=== PATIENT | male | born 1975 | race Caucasian/White ===

== ENCOUNTER 2016-11-27 22:40 | Emergency (ER) | payer SELFPAY ==
--- NOTE | 2016-11-27 23:37 | Cat Scan Report ---
FINAL REPORT EXAM: CT HEAD/BRAIN WO CON HISTORY: BLURRED VISION/DIZZY COMPARISON: None available. TECHNIQUE: Axial images obtained skull base through vertex. FINDINGS: No acute intracranial hemorrhage, midline shift or pathologic extra axial fluid collection. Ventricles and cisterns are normal in size and configuration for the patient's age. Matta-white differentiation preserved. Calvarium grossly intact. Mild benign calcification of the basal ganglia. Mild mucosal thickening along ethmoid air cell septations. Mastoid air cells are clear. Orbits are grossly unremarkable. IMPRESSION: No grossly acute intracranial abnormality.
[2016-11-28 00:09] LABS: Basophils % (Auto) 0.6 % (0.0-1.8); Eosinophils % (Auto) 3.2 % (0.0-4.3); Hematocrit 43.2 % (35.5-45.6); Hemoglobin 14.2 gm/dl (11.8-15.2); Mean Corpuscular HGB Conc 33 % (32-34); Mean Corpuscular Volume 79 fl (84-94); Platelet Count 337 K/mm3 (140-440); Red Blood Count 5.48 M/mm3 (3.65-5.03); Red Cell Distribution Width 15.2 % (13.2-15.2)
[2016-11-28 00:27] LABS: Anion Gap 20 mmol/L; BUN/Creatinine Ratio 31.42; Blood Urea Nitrogen 22 mg/dL (9-20); Calcium 9.6 mg/dL (8.4-10.2); Carbon Dioxide 24 mmol/L (22-30); Chloride 100.6 mmol/L (98-107); Glucose 96 mg/dL (75-100); Mean Corpuscular Hemoglobin 26 pg (28-32); Potassium 3.4 mmol/L (3.6-5.0); Sodium 141 mmol/L (137-145)
--- NOTE | 2016-11-28 11:18 | Emergency Department Report ---
ED General Adult HPI - General Chief complaint: Chest Pain Stated complaint: CP/L ARM PAIN/FACIAL NUMBNESS Time Seen by Provider: 11/28/16 10:52 Source: patient, RN notes reviewed, old records reviewed Mode of arrival: Ambulatory Limitations: No Limitations - History of Present Illness Initial comments: This is a 41-year-old male. He is previously unknown to me. He does not have a local primary care doctor. He denies chronic medical conditions. The patient presents to the ER with multiple complaints. He complains of left- sided chest pain that radiates to the left upper extremity, left sided facial numbness, and occipital headache. The chest discomfort has been present for months. There is no leg pain, there is no leg swelling, no recent trips greater than 4 hours, no recent hospital admissions. To me, the patient denies dizziness, ataxia, blurry vision. He reports that the headache is worse at night, and improves during the day. He reports no weakness. There is no midline neck pain. There is no bladder or bowel retention or incontinence. There is no saddle anesthesia. Patient reports that he has difficulty sleeping at night, and reports poor sleep hygiene. He also reports taking 5 hour energy as a supplement. -: Gradual Location: head, neck, left, upper extremity Radiation: extremity Quality: stabbing Consistency: intermittent Improves with: none Worsens with: none Associated Symptoms: confusion - Related Data Previous Rx's Medication Instructions Recorded Last Taken Type Aspirin [Adult Low Dose Aspirin EC] 81 mg PO QDAY #30 tablet. 11/28/16 Unknown Rx amLODIPine [Norvasc] 10 mg PO DAILY #30 tablet 11/28/16 Unknown Rx Allergies Allergy/AdvReac Type Severity Reaction Status Date / Time No Known Allergies Allergy Verified 07/05/15 01:12 ED Review of Systems ROS: Stated complaint: CP/L ARM PAIN/FACIAL NUMBNESS Other details as noted in HPI Constitutional: denies: fever Eyes: vision change ENT: denies: epistaxis Respiratory: denies: cough Cardiovascular: chest pain Gastrointestinal: denies: vomiting Genitourinary: denies: dysuria Musculoskeletal: back pain Neurological: headache, numbness, paresthesias ED Past Medical Hx - Past Medical History Hx Hypertension: Yes Hx Kidney Stones: Yes - Surgical History Additional Surgical History: Lithotripsy - Social History Smoking Status: Never Smoker Substance Use Type: None - Medications Home Medications: Home Medications Medication Instructions Recorded Confirmed Last Taken Type Aspirin [Adult Low Dose Aspirin EC] 81 mg PO QDAY #30 tablet. 11/28/16 Unknown Rx amLODIPine [Norvasc] 10 mg PO DAILY #30 tablet 11/28/16 Unknown Rx ED Physical Exam - General Limitations: No Limitations General appearance: alert, anxious - Head Head exam: Present: atraumatic, normocephalic - Eye Eye exam: Present: normal appearance, PERRL, EOMI, other (visual acuity intact to finger counting, color perception, reading at a close distance). Absent: nystagmus - ENT ENT exam: Present: normal exam, normal orophraynx, mucous membranes moist, normal external ear exam - Neck Neck exam: Present: normal inspection, full ROM. Absent: tenderness, meningismus - Respiratory Respiratory exam: Present: normal lung sounds bilaterally. Absent: respiratory distress, wheezes, rales, rhonchi, stridor, decreased breath sounds - Cardiovascular Cardiovascular Exam: Present: regular rate, normal rhythm, normal heart sounds. Absent: bradycardia, tachycardia, irregular rhythm, systolic murmur, diastolic murmur, rubs, gallop - GI/Abdominal GI/Abdominal exam: Present: soft, normal bowel sounds. Absent: distended, tenderness, guarding, rebound, rigid, pulsatile mass - Rectal Rectal exam: Present: deferred - Extremities Exam Extremities exam: Present: normal inspection, full ROM, normal capillary refill , other (2+ pulses noted in 4 extremities. There is no palpable cord. The compartments are soft.). Absent: tenderness, pedal edema, joint swelling, calf tenderness - Back Exam Back exam: Present: normal inspection, full ROM. Absent: tenderness, CVA tenderness (R), CVA tenderness (L), muscle spasm, paraspinal tenderness, vertebral tenderness - Neurological Exam Neurological exam: Present: alert, oriented X3, normal gait (there is no pass pointing. Normal [id number]. Negative pronator drift. Normal gait. Normal tandem gait.), other (Extraocular movements intact. Tongue midline. No facial droop. Facial sensation intact to light touch in the V1, V2, V3 distribution bilaterally. 5 and 5 strength in 4 extremities.. Sensation is intact to light touch in 4 extremities.). Absent: motor sensory deficit - Psychiatric Psychiatric exam: Present: normal affect, normal mood - Skin Skin exam: Present: warm, dry, intact, normal color. Absent: rash ED Course Vital Signs 11/27/16 11/28/16 11/28/16 23:01 11:15 11:21 Temperature 98 F Pulse Rate 101 H 64 Respiratory 20 Rate Blood Pressure 163/113 161/94 Blood Pressure [Left] O2 Sat by Pulse 100 99 100 Oximetry 11/28/16 11/28/16 11/28/16 11:31 11:34 11:38 Temperature 98.1 F 98.3 F Pulse Rate 85 Respiratory 16 18 Rate Blood Pressure 151/103 Blood Pressure 151/103 [Left] O2 Sat by Pulse 100 100 100 Oximetry 11/28/16 11/28/16 11/28/16 11:41 11:50 12:41 Temperature Pulse Rate 83 91 H Respiratory 19 17 Rate Blood Pressure 151/103 151/103 151/103 Blood Pressure [Left] O2 Sat by Pulse 100 100 99 Oximetry 11/28/16 11/28/16 11/28/16 12:51 13:00 13:11 Temperature Pulse Rate 84 83 79 Respiratory 24 24 18 Rate Blood Pressure 151/103 143/102 143/102 Blood Pressure [Left] O2 Sat by Pulse 100 100 100 Oximetry 11/28/16 11/28/16 11/28/16 13:21 13:31 13:41 Temperature Pulse Rate 98 H 79 80 Respiratory 18 18 17 Rate Blood Pressure 143/102 143/102 143/102 Blood Pressure [Left] O2 Sat by Pulse 99 100 100 Oximetry 11/28/16 11/28/16 11/28/16 13:51 14:00 14:11 Temperature Pulse Rate 85 80 83 Respiratory 19 21 15 Rate Blood Pressure 143/102 135/92 135/92 Blood Pressure [Left] O2 Sat by Pulse 100 100 100 Oximetry 11/28/16 11/28/16 11/28/16 14:20 14:31 14:41 Temperature Pulse Rate 87 92 H 89 Respiratory 19 19 22 Rate Blood Pressure 135/92 135/92 135/92 Blood Pressure [Left] O2 Sat by Pulse 99 100 100 Oximetry 11/28/16 11/28/16 11/28/16 14:51 15:00 15:11 Temperature Pulse Rate 89 88 100 H Respiratory 13 20 21 Rate Blood Pressure 135/92 143/100 135/92 Blood Pressure [Left] O2 Sat by Pulse 99 99 100 Oximetry 11/28/16 11/28/16 15:21 15:31 Temperature Pulse Rate 86 83 Respiratory 18 18 Rate Blood Pressure 135/92 135/92 Blood Pressure [Left] O2 Sat by Pulse 100 100 Oximetry - Reevaluation(s) Reevaluation #1: 11/28/16 11:56 change in plans. Patient now complaining of nonspecific binocular blurry vision. Visual acuity remains unchanged. Patient will be admitted. Reevaluation #2: 11/28/16 12:30 CT angiogram is pending. Case presented to Hospital physician, Dr. Del Toro who accepts patient to his service. Reevaluation #3: 11/28/16 15:20 the patient is going to sign out AGAINST MEDICAL ADVICE. The patient is alert and oriented 3. He exhibits decision-making capacity. Risks of leaving, including , disability, paralysis, stroke, were discussed extensively with the patient, and he verbalized understanding. The hospital team is aware, and the in a conversation is witnessed by nurse Katerina Meza Patient understands and he can return to the ER right away if and when he changes his mind. CT angiogram has not been interpreted thus far. ED Medical Decision Making - Lab Data Result diagrams: 11/27/16 23:39 11/27/16 23:39 Vital Signs 11/27/16 11/28/16 11/28/16 23:01 11:15 11:21 Temperature 98 F Pulse Rate 101 H 64 Respiratory 20 Rate Blood Pressure 163/113 161/94 O2 Sat by Pulse 100 99 100 Oximetry Lab Results 11/27/16 11/27/16 11/28/16 Range/Units 23:39 23:39 02:02 WBC 11.0 (4.5-11.0) K/mm3 RBC 5.48 H (3.65-5.03) M/mm3 Hgb 14.2 (11.8-15.2) gm/dl Hct 43.2 (35.5-45.6) % MCV 79 L (84-94) fl MCH 26 L (28-32) pg MCHC 33 (32-34) % RDW 15.2 (13.2-15.2) % Plt Count 337 (140-440) K/mm3 Lymph % (Auto) 31.5 (13.4-35.0) % Howard % (Auto) 7.2 (0.0-7.3) % Eos % (Auto) 3.2 (0.0-4.3) % Baso % (Auto) 0.6 (0.0-1.8) % Lymph # 3.5 (1.2-5.4) K/mm3 Howard # 0.8 (0.0-0.8) K/mm3 Eos # 0.4 (0.0-0.4) K/mm3 Baso # 0.1 (0.0-0.1) K/mm3 Seg Neutrophils % 57.5 (40.0-70.0) % Seg Neutrophils # 6.3 (1.8-7.7) K/mm3 Sodium 141 (137-145) mmol/L Potassium 3.4 L (3.6-5.0) mmol/L Chloride 100.6 (98-107) mmol/L Carbon Dioxide 24 (22-30) mmol/L Anion Gap 20 mmol/L BUN 22 H (9-20) mg/dL Creatinine 0.7 L (0.8-1.5) mg/dL Estimated GFR > 60 ml/min BUN/Creatinine Ratio 31.42 % Glucose 96 (75-100) mg/dL Calcium 9.6 (8.4-10.2) mg/dL Troponin T < 0.010 < 0.010 (0.00-0.029) ng/mL 11/28/16 Range/Units 04:52 WBC (4.5-11.0) K/mm3 RBC (3.65-5.03) M/mm3 Hgb (11.8-15.2) gm/dl Hct (35.5-45.6) % MCV (84-94) fl MCH (28-32) pg MCHC (32-34) % RDW (13.2-15.2) % Plt Count (140-440) K/mm3 Lymph % (Auto) (13.4-35.0) % Howard % (Auto) (0.0-7.3) % Eos % (Auto) (0.0-4.3) % Baso % (Auto) (0.0-1.8) % Lymph # (1.2-5.4) K/mm3 Howard # (0.0-0.8) K/mm3 Eos # (0.0-0.4) K/mm3 Baso # (0.0-0.1) K/mm3 Seg Neutrophils % (40.0-70.0) % Seg Neutrophils # (1.8-7.7) K/mm3 Sodium (137-145) mmol/L Potassium (3.6-5.0) mmol/L Chloride (98-107) mmol/L Carbon Dioxide (22-30) mmol/L Anion Gap mmol/L BUN (9-20) mg/dL Creatinine (0.8-1.5) mg/dL Estimated GFR ml/min BUN/Creatinine Ratio % Glucose (75-100) mg/dL Calcium (8.4-10.2) mg/dL Troponin T < 0.010 (0.00-0.029) ng/mL - EKG Data -: EKG Interpreted by In - EKG Data Normal sinus, 75 bpm, normal axis, normal intervals, not morphologically consistent with STEMI, appears unchanged compared to prior EKG from January 2016. Repeat EKG demonstrates normal sinus, 75 bpm, normal intervals, normal axis, not morphologically consistent with stemi 11/28/16 11:38 - Radiology Data Radiology results: report reviewed, image reviewed Noncontrast CT scan of the brain is negative X-ray of the chest is negative for acute disease - Medical Decision Making Differential diagnosis: Acute coronary syndrome, cervical radiculopathy, TIA, multiple sclerosis, conversion disorder Assessment and plan: 41-year-old male with constellation of nonspecific neurologic symptoms and chest pain. The chest pain has been present for months. Troponins negative 2. Low risk by SHERRI score, low risk by heart score , no pulmonary embolus or DVT risk factors, low risk by well's criteria, unlikely to be acute coronary syndrome, patient at low risk for major adverse cardiac event. The patient can follow up with an outpatient primary care doctor or bow maker gift wrapping for his chest pain since it has been present for months. Patient has a GCS of 15, with an NIH score of 0, has sensation intact to light touch, pinprick and proprioception, visual acuity is intact to finger counting, color perception, rating at a close distance, and patient indicates his symptoms are predominantly at night, and improved during the day. Unlikely to be TIA/stroke, patient has low ABCD 2 score. Extensive discussion had with the patient, and he prefers to follow up as an outpatient. Patient indicates that he will follow-up within the week, and through shared decision making patient is instructed to closely follow up with outpatient neurology/primary care/cardiology. Critical care attestation.: If time is entered above; I have spent that time in minutes in the direct care of this critically ill patient, excluding procedure time. ED Disposition Clinical Impression: Chest pain, Numbness, Visual disturbance Disposition: LEFT AGAINST MED ADVICE Is pt being admited?: No Does the pt Need Aspirin: Yes Condition: Undetermined Instructions: Chest Pain (ED) Additional Instructions: As we discussed, you have left the hospital/emergency room AGAINST MEDICAL ADVICE. By leaving, you risked , disability, paralysis, permanent loss of quality of life. The ER is open 24 hours a day, 7 days a week. It never closes. Please return to the emergency room right away if and when you change your mind. If you decide not to return to the emergency room, please follow-up with the listed physician referrals as soon as possible. Prescriptions: amLODIPine [Norvasc] 10 mg PO DAILY #30 tablet Aspirin [Adult Low Dose Aspirin EC] 81 mg PO QDAY #30 tablet.dr Referrals: PRIMARY MD CUCA [Primary Care Provider] - 3-5 Days SCOOTER ARTHUR MD [Staff Physician] - 3-5 Days CHARO HAM MD [Staff Physician] - 3-5 Days KESHA AYALA MD [Staff Physician] - 3-5 Days PRITI BULLARD MD [Staff Physician] - 3-5 Days JOSE G STARK MD [Staff Physician] - 3-5 Days GISELA SOMMER MD [Staff Physician] - 3-5 Days
[2016-11-28] MEDS ORDERED: NACL 0.9% 500 ML 500 ML IV ONE (11:42)
[2016-11-28] MEDS ORDERED: BABY ASPIRIN PO ONE (11:57)
[2016-11-28] MEDS ORDERED: NACL ONE (12:26)
--- NOTE | 2016-11-28 12:57 | XRay Report ---
ROUTINE CHEST, TWO VIEWS: HISTORY: chest pain. The trachea, heart, mediastinal contour, lung [place] and bony thorax are unremarkable. IMPRESSION: Unremarkable chest x-ray.
--- NOTE | 2016-11-28 14:26 | Admit Criteria Form ---
Admission Criteria Documentation: NEUROLOGY GRG Clinical Indications for Admission to Inpatient Care (Place ' X' for any and all applicable criteria): Hospital admission is needed for appropriate care of the patient because of 1 or more of the following: [ ]I. Encephalitis [ ]II. Severe INFORMAT[employer] NURSE [employer]IST infections indicated by 1 or more of the following(1)(2)(3) : [ ]a) Intracranial abscess [ ]b) Spinal abscess or myelitis [ ]c) Tuberculous or other nonbacterial, nonviral INFORMAT[employer] NURSE SPECIALIST infection(8) [ ]III. Vasculitis and 1 or more of the following(14)(15): []a) Altered mental status that is severe or persistent or other acute neurologic change []b) Psychosis []c) Seizure [ ]IV. Status epilepticus or repetitive seizures not controlled with emergent treatment [A] (7)(8) [ ]V. Altered mental status that is severe or persistent [ ]. Transient alteration in consciousness with high-risk etiology; examples include (12)(13): [ ]a) Cardiovascular source [ ]b) Cataplexy [ ]VII. Cerebral aneurysm requiring ANY ONE of the following(14): [ ]a) IV antihypertensives or vasoactive agents [ ]b) Sedation and analgesia for suspected leak [ ]c) Need for external ventricular drainage and cerebral perfusion pressure monitoring [ ]d) Emergent evaluation to determine need for surgical clipping or endovascular coiling by interventional radiology. If surgery is required ( Also use Craniotomy, Supratentorial, for Surgery of Bleeding Intracranial Aneurysm (for bleeding aneurysm) or Craniotomy, Supratentorial (for nonbleeding aneurysm) as appropriate. [ ]VIII. New-onset severe neurologic symptom requiring inpatient care indicated by ANY ONE of the following: [ ]a) Aphasia(15) [ ]b) Weakness (grade 3 or less) [ ]c) Paralysis (eg, hemiplegia) [ ]d) Spasticity(16) [ ]e) Dystonia [ ]e) Ataxia(17) [ ]f) Amnesia(18) [ ]g) Involuntary movements(19) [ ]h) Vertigo [ ] Visual loss [ ]i) Other severe neurologic finding (eg, papilledema, mass effect on imaging, myoclonus not treatable at alternative level of care (eg, observation care) [ ]IX. Guillain-Paicines syndrome(20) [ ]X. Myasthenia gravis crisis or inpatient monitoring need as indicated by 1 or more of the following(21): [ ]a) Intensive treatment (eg, course of plasmapheresis) with inadequate outpatient situation to monitor patients status [ ]b) Inadequate airway protection [ ]c) Respiratory insufficiency requiring intubation or inpatient. monitoring [ ]d) Progressive dysphagia with failure to thrive [ ]XI. Multiple sclerosis or other acute demyelinating disease requiring inpatient care as indicated by 1 or more of the following (22)(23): [ ]a) Acute severe deterioration requiring inpatient treatment (eg, IV steroids, plasmapheresis, close observation) [ ]b) Acute complication requiring inpatient care (eg, sepsis, severe decubitus, aspiration) [ ]XII.Parkinson disease requiring inpatient care (Also use Optimal Recovery Care Criteria or General Recovery Criteria as appropriate) indicated by 1 or more of the following(25): [ ]a) Infection (eg, aspiration pneumonia) not treatable at alternative level of care [ ]b Dehydration that is severe or persistent [ ]c) Life-threatening agitation or psychotic behavior not treatable on emergency, observation care, or alternative level (eg, residential) basis [ ]d) Severe medication withdrawal effects (eg, freezing, neuroleptic malignant syndrome) not responsive to emergency and observation care treatment ( as appropriate) [ ]e) Other severe manifestation not treatable at alternative level of care [ ]XII. Amyotrophic lateral sclerosis with inpatient care needs as indicated by ANY ONE of the following(26): [ ]a) Acute complications (eg, aspiration pneumonia, sepsis ) requiring inpatient care ( see other optimal Recovery Guideline as appropriate) [ ]b) Dehydration that is severe persistent AND artificial support desired [ ]c) Inadequate airway protection AND artificial support desired [ ]d) Severe ventilatory insufficiency AND artificial support desired [ ]XIII. Myasthenia gravis crisis or inpatient monitoring need as indicated by 1 or more of the following(21): [] a) Inadequate airway protection []b) Respiratory insufficiency requiring intubation or inpatient monitoring []c) Progressive dysphagia with failure to thrive []d) Intensive treatment (e.g., course of plasmapheresis) with inadequate outpatient situation to monitor patients status [ ]XIV. Multiple sclerosis or other acute demyelinating disease requiring inpatient care indicated by 1 or more of the following[C](36)(43)(44)(45)(46): []a) Acute severe deterioration requiring inpatient treatment (eg, IV steroids, plasmapheresis, close observation) []b) Acute complication requiring inpatient care (eg, sepsis, severe decubitus, aspiration) [ ]XV. Intracranial hypertension (e.g., pseudotumor cerebri) requiring inpatient care (e.g., acute visual loss, inadequate oral intake) (47)(48)(49) [ ]XVI. Parkinson disease requiring inpatient care (Also use Optimal Recovery Care Criteria or General Recovery Criteria as appropriate) indicated by 1 or more of the following(25): [] a) Infection (e.g., aspiration pneumonia) not treatable at alternative level of care []b) Volume depletion not responsive to emergency and observation care treatment (as appropriate) []c) Life-threatening agitation or psychotic behavior not treatable on emergency, observation care, or alternative level (e.g., residential) basis []d) Severe medication withdrawal effects (e.g., freezing, neuroleptic malignant syndrome) not responsive to emergency and observation care treatment (as appropriate) []e) Other severe manifestation not treatable at alternative level of care [ ]XVII. Amyotrophic lateral sclerosis with inpatient care needs as indicated by1 or more of the following(42): []a) Acute complications (eg, aspiration pneumonia, sepsis) requiring inpatient care (see other Optimal Recovery Guideline or General Recovery Guideline as appropriate) []b) Dehydration that is severe or persistent AND artificial support desired []c) Inadequate airway protection AND artificial support desired []d) Severe ventilatory insufficiency AND artificial support desired [ ]XVIII. Severe myopathy, neuropathy, or other neuromuscular disease indicated by 1 or more of the following(42)(52)(53)(54): []a ) New-onset severe diffuse weakness (eg, strength 3/5 or less) []b) Severe dysphagia []c) Dyspnea at rest or with minimal exertion (new) []d) Inadequate airway protection []e) Inadequate ventilation indicated by 1 or more of the following : i) Partial pressure of carbon dioxide greater than 44 mm Hg ( 5.9 kPa) (new) ii) Reduced peak expiratory flow rate (new) iii) Vital capacity less than 50% of predicted (less than 15 mL/kg) iv) Peak inspiratory force less negative than -30 cm H2O (- 2942 Pa) [ ]XVII.Complications of congenital or degenerative disease (eg, infection, seizures, dehydration, injury) not responsive to emergency and observation care treatment (as appropriate ) [C](16)(29)(30) [ ]XVIII.Suspected or confirmed nerve or muscle toxic injury, including ANY ONE of the following: [ ]a) Rhabdomyolysis(31) i) Acute renal failure ii) Dehydration that is severe or persistent iii) Altered mental status that is severe or persistent iv) Electrolyte abnormality that remains after emergency or observation level care ( as appropriate) [ ]b) Botulism(32) [ ]c) Other severe toxin-induced sign or symptom [ ]XIX. Neurologic trauma requiring inpatient treatment (medical) indicated by ANY ONE of the following(33)(34): [ ]a) Vital signs or neurologic signs more frequently than every 4 hours [ ]b) Hyperosmolar therapy [ ]c) Respiratory monitoring [ ]d) Intracranial pressure monitoring and treatment [ ]e) Stabilization and immobilization device placement (eg, braces, body jacket) [ ]f) Intubation & mechanical ventilation for airway protection or therapeutic hyperventilation [ ]g) Other treatment or monitoring needed that requires inpatient level of care [ ]XX.Complications of neurologic devices (eg, ventricular shunt, neurostimulator) requiring 1 or more of the following(35)(36): [ ]a) IV antibiotics with monitoring while awaiting culture results [ ]b) Monitoring for hydrocephalus [X ]XXI. Neurology condition symptom, or finding for which emergency and observation care have failed or are not considered appropriate. See General Criteria: Observation Care ISC, General Admission Criteria GRG, or Pediatric General Admission Criteria GRG guideline as appropriate. The original [facility] content created by [employer] has been revised. The portions of the content which have been revised are identified through the use of italic text or in bold, and [facility] has neither reviewed nor approved the modified material. All other unmodified content is copyright [facility] Please see references footnoted in the original [facility] edition 2016
--- NOTE | 2016-11-28 15:06 | Cat Scan Report ---
CTA NECK: HISTORY: Facial numbness, CVA. TECHNIQUE: Helical CT following IV contrast. Sagittal and coronal reformatted images. 3D volume rendering technique. Stenosis was calculated using NASCET criteria. FINDINGS: The visualized aortic arch, innominate artery and proximal bilateral subclavian arteries are widely patent with less than 20% stenosis. Within the right carotid system: There is no significant atherosclerotic disease. There is less than 20 % stenosis. Within the left carotid system: There is no significant atherosclerotic disease. There is less than 20% stenosis. The cervical vertebral arteries are patent with less than 20% stenosis. IMPRESSION: Unremarkable CTA of the neck.
--- NOTE | 2016-11-28 15:08 | Cat Scan Report ---
CTA HEAD: HISTORY: Facial numbness, CVA. TECHNIQUE: Helical CT images after IV contrast with 0.625mm reformations. Sagittal and coronal reformats. Rotational MIP images. 3D volume rendering technique. FINDINGS: The arterial structures of the anterior and posterior circulations are patent throughout. No evidence for stenosis, occlusion or aneurysm. IMPRESSION: Unremarkable CTA head.
[2016-11-28 16:29] VITALS: BP 135/92
== END 2016-11-28 19:56 | disposition left against medical advice (07) ==
LOC: ED 22:40 → UNDOADMIN 11-28 12:30 → 4A 11-28 12:30 → ED 11-28 19:56
DX: R20.0 Anesthesia of skin (principal); H53.9 Unspecified visual disturbance; R07.9 Chest pain, unspecified; I10 Essential (primary) hypertension
CPT/HCPCS: 36415; 70450; 70496; 70498; 71020; 80048; 84484; 85025; 93005; 93010; 99285; Q9967